=== PATIENT | male | born 1985 | race Caucasian/White ===

== ENCOUNTER 2018-03-22 14:24 | Emergency (ER) | payer SELFPAY ==
[2018-03-22] MEDS ORDERED: HYDROmorphone 1 MG/ML Syringe IVPUSH ONE ×3 (14:31→15:15)
[2018-03-22] MEDS ORDERED: HYDROmorphone 1 MG/ML Syringe ONE (14:31)
[2018-03-22] MEDS ORDERED: Diphtheria,Pertussis(Acell),Tetanus Vaccine 0.5 ML Syringe IM ONE (14:31)
[2018-03-22] MEDS ORDERED: Sodium Chloride 0.9% 10 ML Syringe FLUSH PRN (14:32)
[2018-03-22] MEDS ORDERED: Prochlorperazine 10 MG/2 ML SDV IV ONE (14:34)
[2018-03-22] MEDS ORDERED: ceFAZolin 1 GM Vial IVPUSH ONE (14:35)
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
[2018-03-22] MEDS ORDERED: Sodium Chloride 0.9% 1,000 ML IV ONE (15:03)
[2018-03-22 15:22] LABS: CHLORIDE,CL 106 mmol/L (98-107); SODIUM,NA 143 mmol/L (136-145)
[2018-03-22 15:48] VITALS: BP 132/67
== END 2018-03-22 15:50 | disposition short-term general hospital (02) ==
LOC: VM.ED 14:24
DX: S68.121A Partial traumatic metacarpophalangeal amputation of left index finger, initial encounter (principal); S68.022A Partial traumatic metacarpophalangeal amputation of left thumb, initial encounter; T23.002A Burn of unspecified degree of left hand, unspecified site, initial encounter; I10 Essential (primary) hypertension; X08.8XXA Exposure to other specified smoke, fire and flames, initial encounter; W39.XXXA Discharge of firework, initial encounter; Z88.1 Allergy status to other antibiotic agents
CPT/HCPCS: 36415; 73120-LT; 80053; 85025; 85610; 96361; 96374; 96375; 96376; 99284-GF; 99285; J0690; J0780; J1170; J7030